=== PATIENT | male | born 1995 | race Caucasian/White ===

== ENCOUNTER 2018-12-15 19:46 | Emergency (ER) | payer OTHER ==
[~2018-12-15] VITALS: Ht 188 cm; Wt 72.6 kg
[~2018-12-15 19:46] MED LIST: CONCERTA; IBUPROFEN 400400 M1 PO; NORCO 5-325 TA1 EACH PO
[2018-12-15] MEDS ORDERED: MOBIC15 MG PO (21:20)
[2018-12-15 21:46] VITALS: BP 159/81
== END 2018-12-15 21:47 | disposition home or self-care (01) ==
LOC: ER 19:46
DX: S89.92XA Unspecified injury of left lower leg, initial encounter (principal); Z91.048 Other nonmedicinal substance allergy status; W22.8XXA Striking against or struck by other objects, initial encounter; Y92.89 Other specified places as the place of occurrence of the external cause; Y93.89 Activity, other specified; Y99.8 Other external cause status

== ENCOUNTER → 2019-01-22 | Outpatient (CLI) | payer OTHER ==
[~2019-01-22] MED LIST changes: +MOBIC15 MG PO
== END ==
LOC: ULTRA 09:50
DX: M25.462 Effusion, left knee (principal)

== ENCOUNTER 2019-03-24 22:51 | Emergency (ER) | payer OTHER ==
[~2019-03-24] VITALS: Ht 188 cm; Wt 77.1 kg
[2019-03-25] MEDS ORDERED: NAPROSYN500 MG PO (01:05)
[2019-03-25 01:35] VITALS: BP 126/86
== END 2019-03-25 01:37 | disposition home or self-care (01) ==
LOC: ER 22:51
DX: M25.522 Pain in left elbow (principal); M25.422 Effusion, left elbow; F17.210 Nicotine dependence, cigarettes, uncomplicated; Z88.8 Allergy status to other drugs, medicaments and biological substances